=== PATIENT | male | born 1995 | race Caucasian/White ===

== ENCOUNTER 2019-02-19 23:39 | Inpatient (IN) | payer BC ==
[2019-02-20] MEDS ORDERED: VANCOMYCIN HCL 1.25 GM in SOD CHLORIDE 0.9% 250 ML IVPB (03:00)
[2019-02-20] MEDS ORDERED: HYDROCODONE/APAP (5/325) TAB PO (03:00)
[2019-02-20] MEDS ORDERED: ONDANSETRON 4 MG TAB PO (03:00)
[2019-02-20] MEDS ORDERED: ACETAMINOPHEN 325 MG TAB PO (03:00)
[2019-02-20] MEDS ORDERED: VANCOMYCIN IV PER PHARMACY XX (03:00)
[2019-02-20] MEDS: SOD CHLORIDE 0.9% 1,000 ML IV ×3 (04:23→22:39)
[2019-02-20] MEDS: PIPER-TAZO 3.375 GM IV (PMX) 100 ML IVPB ×3 (05:35→21:25)
[2019-02-20] MEDS: PANTOPRAZOLE (EC) 40 MG TAB PO (05:35)
[2019-02-20] MEDS: NALOXONE BUCCAL ×2 (05:47→23:02)
[2019-02-20] MEDS: [UNRECOGNIZED DRUG - OTHER] BUCCAL ×2 (05:47→23:02)
[2019-02-20] MEDS: VANCOMYCIN 1 GM 250 ML IVPB ×3 (06:56→22:37)
[2019-02-20 07:15] LABS: BLOOD UREA NITROGEN 17 mg/dl (7-20)
[2019-02-20 07:15] LABS: CREATININE 0.86 mg/dl (0.61-1.24)
[2019-02-20] MEDS: SOD CHLORIDE 0.9% 100 ML (14:03)
[2019-02-20] MEDS: IOHEXOL 300MG/ML 150 ML BTL (14:04)
[2019-02-20] MEDS: ENOXAPARIN 40 MG/0.4 ML SYG SC (14:36)
[2019-02-20] MEDS: NITROGLYCERIN (SL) 0.4 MG TAB SL (22:22)
[2019-02-20 23:28] LABS: TROPONIN-I < 0.012 ng/ml (0.000-0.120)
[2019-02-20] MEDS: NEOMYC/POLYMYX/BACIT 30 GM OINT TOP (23:50)
[2019-02-21] MEDS: PANTOPRAZOLE (EC) 40 MG TAB PO (05:39)
[2019-02-21] MEDS: PIPER-TAZO 3.375 GM IV (PMX) 100 ML IVPB ×3 (05:41→21:18)
[2019-02-21] MEDS: SOD CHLORIDE 0.9% 1,000 ML IV ×3 (06:00→21:00)
[2019-02-21 06:18] LABS: ADD MAN DIFF? NO
[2019-02-21 06:22] LABS: BASOPHILS % 0.7 % (0.0-2.0); EOSINOPHILS # 0.1 10^3/ul (0.0-0.5); HEMATOCRIT 36.3 % (42.0-52.0); HEMOGLOBIN 11.4 g/dl (14.0-18.0); LYMPHOCYTES # 1.7 10^3/ul (0.8-2.9); LYMPHOCYTES % 27.5 % (15.0-51.0); MEAN CORPUSCULAR HEMOGLOBIN 27.5 pg (29.0-33.0); MEAN CORPUSCULAR HGB CONC 31.4 g/dl (32.0-37.0); MEAN CORPUSCULAR VOLUME 87.5 fl (82.0-101.0); MEAN PLATELET VOLUME 9.7 fl (7.4-10.4); MONOCYTE # 0.9 10^3/ul (0.3-0.9); MONOCYTES % 15.1 % (0.0-11.0); NEUTROPHIL # 3.4 10^3/ul (1.6-7.5); NEUTROPHILS % 55.5 % (39.0-77.0); PLATELET COUNT 209 10^3/UL (140-415); RED BLOOD COUNT 4.15 10^6/ul (4.70-6.10); RED CELL DISTRIBUTION WIDTH 13.7 % (11.5-14.5)
[2019-02-21] MEDS: VANCOMYCIN 1 GM 250 ML IVPB ×3 (06:31→22:51)
[2019-02-21 06:48] LABS: ANION GAP 6 (5-13); BLOOD UREA NITROGEN 16 mg/dl (7-20); CALCIUM 8.6 mg/dl (8.4-10.2); CARBON DIOXIDE 28 mmol/L (21-31); CHLORIDE 104 mmol/L (97-110); CREATININE 0.76 mg/dl (0.61-1.24); Estimated GFR > 60 mL/min (>60); GLUCOSE 92 mg/dl (70-220); SODIUM 138 mmol/L (135-144)
[2019-02-21 07:00] LABS: TROPONIN-I < 0.012 ng/ml (0.000-0.120)
[2019-02-21] MEDS: NEOMYC/POLYMYX/BACIT 30 GM OINT TOP ×2 (08:46→21:18)
[2019-02-21] MEDS: ENOXAPARIN 40 MG/0.4 ML SYG SC (08:55)
[2019-02-21] MEDS: NALOXONE BUCCAL ×2 (09:28→22:37)
[2019-02-21] MEDS: [UNRECOGNIZED DRUG - OTHER] BUCCAL ×2 (09:28→22:37)
[2019-02-21 10:52] LABS: TROPONIN-I < 0.012 ng/ml (0.000-0.120)
[2019-02-21 15:34] LABS: VANCOMYCIN,TROUGH 13.5 ug/ml (10.0-20.0)
[2019-02-21] MEDS ORDERED: BISACODYL (EC) 5 MG TAB PO (16:30)
[2019-02-21] MEDS: POLYETHYLENE GLYCOL 17 GM PACKET PO (16:44)
[2019-02-22] MEDS: PANTOPRAZOLE (EC) 40 MG TAB PO (05:23)
[2019-02-22] MEDS: PIPER-TAZO 3.375 GM IV (PMX) 100 ML IVPB ×3 (05:23→21:32)
[2019-02-22] MEDS: VANCOMYCIN 1 GM 250 ML IVPB ×3 (06:07→23:45)
[2019-02-22 06:18] LABS: ADD MAN DIFF? NO; HAAIG REFLEX REFLEX FILED
[2019-02-22 06:21] LABS: WHITE BLOOD COUNT 5.2 10^3/ul (4.8-10.8)
[2019-02-22 06:21] LABS: BASOPHIL # 0.1 10^3/ul (0.0-0.1); EOSINOPHILS # 0.1 10^3/ul (0.0-0.5); EOSINOPHILS % 2.5 % (0.0-7.0); HEMATOCRIT 36.7 % (42.0-52.0); HEMOGLOBIN 11.4 g/dl (14.0-18.0); LYMPHOCYTES # 2.1 10^3/ul (0.8-2.9); LYMPHOCYTES % 40.8 % (15.0-51.0); MEAN CORPUSCULAR HEMOGLOBIN 27.2 pg (29.0-33.0); MEAN CORPUSCULAR HGB CONC 31.1 g/dl (32.0-37.0); MEAN CORPUSCULAR VOLUME 87.6 fl (82.0-101.0); MEAN PLATELET VOLUME 9.6 fl (7.4-10.4); MONOCYTE # 0.7 10^3/ul (0.3-0.9); MONOCYTES % 13.5 % (0.0-11.0); NEUTROPHIL # 2.2 10^3/ul (1.6-7.5); PLATELET COUNT 248 10^3/UL (140-415); RED BLOOD COUNT 4.19 10^6/ul (4.70-6.10)
[2019-02-22 07:16] LABS: ANION GAP 9 (5-13); BLOOD UREA NITROGEN 13 mg/dl (7-20); CALCIUM 9.1 mg/dl (8.4-10.2); CARBON DIOXIDE 28 mmol/L (21-31); CHLORIDE 104 mmol/L (97-110); CREATININE 0.73 mg/dl (0.61-1.24); Estimated GFR > 60 mL/min (>60); GLUCOSE 83 mg/dl (70-220); POTASSIUM 4.2 mmol/L (3.5-5.1); SODIUM 141 mmol/L (135-144)
[2019-02-22 07:30] LABS: HEPATITIS B SURFACE ANTIGEN NEGATIVE (NEGATIVE)
[2019-02-22 07:51] LABS: HEPATITIS B CORE ANTIBODY NEGATIVE (NEGATIVE); HEPATITIS C VIRAL ANTIBODY NEGATIVE (NEGATIVE)
[2019-02-22] MEDS: POLYETHYLENE GLYCOL 17 GM PACKET PO (08:29)
[2019-02-22] MEDS: [UNRECOGNIZED DRUG - OTHER] BUCCAL ×3 (08:30→21:00)
[2019-02-22] MEDS: NALOXONE BUCCAL ×3 (08:30→21:00)
[2019-02-22] MEDS: NEOMYC/POLYMYX/BACIT 30 GM OINT TOP ×2 (08:33→23:45)
[2019-02-22] MEDS: ENOXAPARIN 40 MG/0.4 ML SYG SC (09:26)
[2019-02-22] MEDS: SOD FERRIC GLUC COMPLX 125 MG in SOD CHLORIDE 0.9% 100 ML IVPB (12:50)
[2019-02-22] MEDS: SOD CHLORIDE 0.9% 1,000 ML IV (15:00)
[2019-02-23] MEDS: PIPER-TAZO 3.375 GM IV (PMX) 100 ML IVPB ×3 (05:39→21:11)
[2019-02-23] MEDS: PANTOPRAZOLE (EC) 40 MG TAB PO (05:39)
[2019-02-23 06:01] LABS: ADD MAN DIFF? NO
[2019-02-23 06:18] LABS: WHITE BLOOD COUNT 6.2 10^3/ul (4.8-10.8)
[2019-02-23 06:18] LABS: BASOPHIL # 0.1 10^3/ul (0.0-0.1); BASOPHILS % 0.8 % (0.0-2.0); EOSINOPHILS # 0.3 10^3/ul (0.0-0.5); EOSINOPHILS % 4.3 % (0.0-7.0); HEMATOCRIT 32.9 % (42.0-52.0); HEMOGLOBIN 10.3 g/dl (14.0-18.0); LYMPHOCYTES # 2.3 10^3/ul (0.8-2.9); LYMPHOCYTES % 36.6 % (15.0-51.0); MEAN CORPUSCULAR HEMOGLOBIN 27.5 pg (29.0-33.0); MEAN CORPUSCULAR HGB CONC 31.3 g/dl (32.0-37.0); MEAN PLATELET VOLUME 9.5 fl (7.4-10.4); MONOCYTE # 0.7 10^3/ul (0.3-0.9); MONOCYTES % 11.7 % (0.0-11.0); NEUTROPHIL # 2.9 10^3/ul (1.6-7.5); NEUTROPHILS % 46.3 % (39.0-77.0); PLATELET COUNT 249 10^3/UL (140-415); RED BLOOD COUNT 3.74 10^6/ul (4.70-6.10); RED CELL DISTRIBUTION WIDTH 13.6 % (11.5-14.5)
[2019-02-23] MEDS: VANCOMYCIN 1 GM 250 ML IVPB ×3 (06:44→22:51)
[2019-02-23 07:00] LABS: ANION GAP 7 (5-13); BLOOD UREA NITROGEN 12 mg/dl (7-20); CALCIUM 9.2 mg/dl (8.4-10.2); CARBON DIOXIDE 31 mmol/L (21-31); CHLORIDE 102 mmol/L (97-110); CREATININE 0.73 mg/dl (0.61-1.24); Estimated GFR > 60 mL/min (>60); GLUCOSE 94 mg/dl (70-220); SODIUM 140 mmol/L (135-144)
[2019-02-23] MEDS: [UNRECOGNIZED DRUG - OTHER] BUCCAL ×3 (09:00→21:00)
[2019-02-23] MEDS: NALOXONE BUCCAL ×3 (09:00→21:00)
[2019-02-23] MEDS: POLYETHYLENE GLYCOL 17 GM PACKET PO (10:22)
[2019-02-23] MEDS: NEOMYC/POLYMYX/BACIT 30 GM OINT TOP ×2 (10:22→21:00)
[2019-02-23] MEDS: ENOXAPARIN 40 MG/0.4 ML SYG SC (10:22)
[2019-02-23] MEDS: SOD CHLORIDE 0.9% 1,000 ML IV (12:09)
[2019-02-23] MEDS: SOD FERRIC GLUC COMPLX 125 MG in SOD CHLORIDE 0.9% 100 ML IVPB (12:09)
[2019-02-23] MEDS: METHADONE (1 MG/ML 5 ML PO UD SYG) PO ×2 (14:00→21:57)
[2019-02-24] MEDS: SOD CHLORIDE 0.9% 1,000 ML IV ×2 (05:14→16:06)
[2019-02-24] MEDS: PIPER-TAZO 3.375 GM IV (PMX) 100 ML IVPB (05:14)
[2019-02-24] MEDS: PANTOPRAZOLE (EC) 40 MG TAB PO (06:00)
[2019-02-24] MEDS: METHADONE (1 MG/ML 5 ML PO UD SYG) PO ×2 (06:00→15:30)
[2019-02-24] MEDS: VANCOMYCIN 1 GM 250 ML IVPB ×2 (06:20→15:29)
[2019-02-24] MEDS: [UNRECOGNIZED DRUG - OTHER] BUCCAL (08:47)
[2019-02-24] MEDS: NALOXONE BUCCAL (08:47)
[2019-02-24] MEDS: POLYETHYLENE GLYCOL 17 GM PACKET PO (10:09)
[2019-02-24] MEDS: NEOMYC/POLYMYX/BACIT 30 GM OINT TOP (10:10)
[2019-02-24] MEDS: ENOXAPARIN 40 MG/0.4 ML SYG SC (10:11)
[2019-02-24] MEDS: SOD FERRIC GLUC COMPLX 125 MG in SOD CHLORIDE 0.9% 100 ML IVPB (13:16)
[2019-02-24 16:06] LABS: VANCOMYCIN,TROUGH 11.4 ug/ml (10.0-20.0)
== END 2019-02-24 17:55 | disposition home or self-care (01) | DRG 872 ==
LOC: PP2 02-22 13:52 → TEL 02-20 04:10
PROVIDERS: Internal Medicine
DX: A40.0 Sepsis due to streptococcus, group A (principal); L03.113 Cellulitis of right upper limb; F11.20 Opioid dependence, uncomplicated; F17.200 Nicotine dependence, unspecified, uncomplicated; I80.8 Phlebitis and thrombophlebitis of other sites; D64.9 Anemia, unspecified; F15.90 Other stimulant use, unspecified, uncomplicated
CPT/HCPCS: 73200; 80048; 80202; 82565; 84484; 84520; 85025; 86704; 86709; 86803; 87040-91; 87081; 87340; 87536; 93005; 93306